=== PATIENT | female | born 1960 | race Caucasian/White ===

== ENCOUNTER 2021-02-07 21:32 | Emergency (ER) | payer OTHER ==
[~2021-02-07 21:32] MED LIST: CYCLOBENZAPRINE10 MG PO; IBU600 MG PO
[2021-02-07 23:38] LABS: HEMOGLOBIN 13.2 gm/dl (12.3-15.3); RED BLOOD COUNT 4.8 M/UL (4.00-5.10); WHITE BLOOD COUNT 11.9 K/UL (4.5-11.0)
[2021-02-07 23:55] LABS: BUN/CREATININE RATIO 24 (0-10)
[2021-02-08] MEDS ORDERED: IBUPROFEN600 MG PO (02:14)
[2021-02-08] MEDS ORDERED: HYDROCODON-ACE1 EAC4 PO (02:14)
[2021-02-08] MEDS ORDERED: ZOFRAN ODT 4 MG4 MG PO (02:14)
[2021-02-08] MEDS ORDERED: FLOMAX 0.4 MG0.4 MG PO (02:14)
== END 2021-02-08 02:11 | disposition home or self-care (01) ==
LOC: ER1 21:32
PROVIDERS: Emergency Medicine
DX: N13.2 Hydronephrosis with renal and ureteral calculous obstruction (principal); K21.9 Gastro-esophageal reflux disease without esophagitis; I10 Essential (primary) hypertension; E03.9 Hypothyroidism, unspecified; Z90.49 Acquired absence of other specified parts of digestive tract; Z90.710 Acquired absence of both cervix and uterus; Z90.89 Acquired absence of other organs
CPT/HCPCS: 80053; 81001; 83690; 85025; 87086; 96374; 96375; 99284; J2270; J2405

== ENCOUNTER → 2022-06-29 | Outpatient (CLI) | payer OTHER ==
[~2022-06-29] MED LIST changes: +FLOMAX 0.4 MG0.4 MG PO; +HYDROCODON-ACE1 EAC4 PO; +IBUPROFEN600 MG PO; +ZOFRAN ODT 4 MG4 MG PO
== END ==
LOC: EXRD 15:36
DX: M79.602 Pain in left arm (principal); M79.89 Other specified soft tissue disorders
CPT/HCPCS: 93971